=== PATIENT | male | born 1995 | race Caucasian/White ===

== ENCOUNTER 2016-10-31 10:06 | Emergency (ER) | payer OTHER ==
[~2016-10-31] VITALS: Ht 172.7 cm; Wt 92.5 kg
[2016-10-31 10:15] VITALS: BP 160/85
--- NOTE | 2016-10-31 10:43 | PHYS DOC ---
Past Medical History Past Medical History: Asthma, Hypertension, Other Additional Past Medical Histor: ADD, ADHD Past Surgical History: Other Additional Past Surgical Histo: TESTICULAR CONTUSION SX Alcohol Use: Occasionally Drug Use: None Adult General Chief Complaint Chief Complaint: COUGH HPI HPI Patient is a 21 year old male presents emergency department for a history of a harsh, productive cough for the past 4 weeks. Patient is a smoker, he also dips and has a history of asthma. He denies any previous hospitalizations, antibiotics or foreign travel within the past 90 days. He denies previous intubations due to asthma attacks. He was not premature. He did spend a couple of weeks in the intensive care unit due to respiratory problems per his mother's recall. 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 Review of Systems Review of Systems Constitutional: Denies fever or chills [] Eyes: Denies change in visual acuity, redness, or eye pain [] HENT: Denies nasal congestion or sore throat [] Respiratory: Denies cough or shortness of breath [] Cardiovascular: No additional information not addressed in HPI [] GI: Denies abdominal pain, nausea, vomiting, bloody stools or diarrhea [] : Denies dysuria or hematuria [] Musculoskeletal: Denies back pain or joint pain [] Integument: Denies rash or skin lesions [] Neurologic: Denies headache, focal weakness or sensory changes [] Endocrine: Denies polyuria or polydipsia [] Current Medications Current Medications Current Medications Medications (Trade) Dose Ordered Sig/Karla Start Time Stop Time Status Last Admin Dose Admin Albuterol/ Ipratropium (Duoneb) 3 ml 1X ONCE 10/31/16 10:45 10/31/16 10:46 DC 10/31/16 10:44 3 ML Prednisone (Prednisone) 50 mg 1X ONCE 10/31/16 10:45 10/31/16 10:46 DC 10/31/16 10:53 50 MG Allergies Allergies Allergies Coded Allergies Type Severity Reaction Last Updated Verified cefprozil Allergy Intermediate 10/31/16 Yes Physical Exam Physical Exam Constitutional: Well developed, well nourished, no acute distress, non-toxic appearance. Patient is afebrile and has not taken antipyretics. HENT: Normocephalic, atraumatic, bilateral external ears normal, oropharynx moist, no oral exudates, nose normal. Eyes: PERRLA, EOMI, conjunctiva normal, no discharge. [] Neck: Normal range of motion, no tenderness, supple, no stridor. There is no cervical lymphadenopathy. Cardiovascular:Heart rate regular rhythm, no murmur [] Lungs & Thorax: Patient does not show signs of respiratory distress or respiratory fatigue. He is able to speak in full, unbroken sentences. There is no sensory muscle use. Patient does have scattered, coarse wheezing in all lung anne. Oxygen saturation is 97% on room air. Abdomen: Bowel sounds normal, soft, no tenderness, no masses, no pulsatile masses. [] Skin: Warm, dry, no erythema, no rash. [] Back: No tenderness, no CVA tenderness. [] Extremities: No tenderness, no cyanosis, no clubbing, ROM intact, no edema. [] Neurologic: Alert and oriented X 3, normal motor function, normal sensory function, no focal deficits noted. [] Psychologic: Affect normal, judgement normal, mood normal. [] Current Patient Data Vital Signs Vital Signs Date Time Temp Pulse Resp B/P Pulse Ox O2 Delivery O2 Flow Rate FiO2 10/31/16 10:44 Room Air 10/31/16 10:15 98.5 94 16 95 98.5 EKG EKG [] Radiology/Procedures Radiology/Procedures [] Course & Med Decision Making Course & Med Decision Making Patient received 50 mg of prednisone and a DuoNeb treatment in emergency department. He was reevaluated post-neb treatment. Patient's had decreased coarse wheezing. His become slightly more fine and less intense. He is still displayed no evidence of first-degree distress or respiratory fatigue. Patient reports feeling better after the nebulizer treatment. Dragon Disclaimer Dragon Disclaimer This electronic medical record was generated, in whole or in part, using a voice recognition dictation system. Departure Departure Impression: Primary Impression: Asthma exacerbation Disposition: 01 HOME, SELF-CARE Condition: IMPROVED Referrals: NO PCP (PCP) Patient Instructions: Acute Bronchitis, Ufyn-[id number], Asthma Attacks, Prevention, Asthma, Adult, Smoking Cessation, Tips For Success, Smoking, You Can Quit, [id number] Additional Instructions: 1. Take the medication as prescribed. 2. Review the discharge instructions provided for reasons to return the emergency department and performing self-care. 3. Use the pamphlet provided for assistance in finding a primary care doctor to address your medical concerns and follow-up within the next 5-7 days. Scripts Azithromycin (Azithromycin Tablet)250 Mg Tablet1 Pkg PO UD #6 TAB Prov:FRANSISCO PIERCE 10/31/16 Albuterol Sulfate (Proair Hfa Inhaler)8.5 Gm Hfa.aer.ad1 Puff INH PRN Q6HRS PRN SHORTNESS OF BREATH #1 INHALER Ref 0 Prov:FRANSISCO PIERCE 10/31/16 Prednisone 50 Mg [id number] Mg PO DAILY 5 Days Prov:FRANSISCO PIERCE 10/31/16 FRANSISCO PIERCE Oct 31, 2016 10:43
[2016-10-31] MEDS ORDERED: IPRATRPIUM/ALBUTEROL 0.5/2.5MG 3 ML NEBU. NEB ONE (10:45)
[2016-10-31] MEDS ORDERED: PREDNISONE 20 MG TABLET PO ONE (10:45)
[2016-10-31] MEDS ORDERED: PROAIR HFA8.5 GM INH (11:28)
[2016-10-31] MEDS ORDERED: PRED50TA PO (11:28)
[2016-10-31] MEDS ORDERED: AZIT250T6 PO (11:28)
== END 2016-10-31 11:45 | disposition home or self-care (01) ==
LOC: ER 10:06
DX: J45.901 Unspecified asthma with (acute) exacerbation (principal); I10 Essential (primary) hypertension; F90.9 Attention-deficit hyperactivity disorder, unspecified type; F17.200 Nicotine dependence, unspecified, uncomplicated; Z88.8 Allergy status to other drugs, medicaments and biological substances
CPT/HCPCS: 94250; 94640; 99283; J7512; J7620

== ENCOUNTER 2017-06-21 10:15 | Emergency (ER) | payer OTHER ==
[~2017-06-21] VITALS: Ht 175.3 cm; Wt 93.0 kg
[~2017-06-21 10:15] MED LIST: AZIT250T6 PO; PRED50TA PO; PROAIR HFA8.5 GM INH
[2017-06-21 10:25] VITALS: BP 160/89
--- NOTE | 2017-06-21 10:41 | PHYS DOC ---
Past Medical History Past Medical History: Asthma, Hypertension, Other Additional Past Medical Histor: ADD, ADHD Past Surgical History: Other Additional Past Surgical Histo: TESTICULAR CONTUSION SX, HERNIA REPAIR Alcohol Use: Occasionally Drug Use: None Adult General Chief Complaint Chief Complaint: ANKLE PROBLEM HPI HPI Patient is a 21 year old male with history of hypertension and asthma who presents with mild medial and lateral right ankle pain and numbness that began last night. 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 He states he was at work last night. He states he moved his ankle and suddenly heard a "pop" from the ankle with numbness. Patient states he has history ankle problems since seventh grade. Patient states he does not follow-up with an orthopedic doctor. Review of Systems Review of Systems Constitutional: Denies fever or chills [] Musculoskeletal: right ankle pain with numbness Integument: Denies rash or skin lesions [] Neurologic: Denies headache, focal weakness or sensory changes [] Allergies Allergies Allergies Coded Allergies Type Severity Reaction Last Updated Verified cefprozil Allergy Intermediate 10/31/16 Yes Physical Exam Physical Exam Constitutional: Well developed, well nourished, no acute distress, non-toxic appearance. [] Skin: Right ankle with small amount of soft tissue swelling medially and laterally. Tenderness on palpation of the medial and lateral ankle. Full range of motion to the right ankle including flexion and extension of the foot. +2 right pedal pulse. Cap refill less than 2 seconds the right toes. Sensation intact in the right lower extremity. Negative Homans's sign to the RLE Back: No tenderness, no CVA tenderness. [] Extremities: No tenderness, no cyanosis, no clubbing, ROM intact, no edema. [] Neurologic: Alert and oriented X 3, normal motor function, normal sensory function, no focal deficits noted. [] Psychologic: Affect normal, judgement normal, mood normal. [] Current Patient Data Vital Signs Vital Signs Date Time Temp Pulse Resp B/P (MAP) Pulse Ox O2 Delivery O2 Flow Rate FiO2 06/21/17 10:25 98.1 83 16 97 Room Air 98.1 EKG EKG [] Radiology/Procedures Radiology/Procedures []PROCEDURE: ANKLE RIGHT 3V Right ankle, 3 views, 06/21/2017: History: Injury No fracture or dislocation is identified. The soft tissues are unremarkable. IMPRESSION: No acute right ankle abnormality is detected. DICTATED and SIGNED BY: BOBBI BASHIR MD DATE: 06/21/17 1100 CC: REYNA MONTEJO APRN; NO PCP ~ Course & Med Decision Making Course & Med Decision Making Pertinent Labs and Imaging studies reviewed. (See chart for details) Patient is in the ED right ankle pain no known injury. Right ankle x-rays interpreted by radiologist were negative for any acute findings. Patient already has a brace for his right ankle. Neurovascular exam is intact to the right ankle. Patient was discharged with naproxen. Provided an orthopedic doctor for follow-up in one week. Dragon Disclaimer Dragon Disclaimer This electronic medical record was generated, in whole or in part, using a voice recognition dictation system. Departure Departure Impression: Primary Impression: Right ankle sprain Disposition: HOME, SELF-CARE Condition: STABLE Referrals: NO PCP (PCP) MIROSLAVA DURAND MD call her office on Friday for a follow appointment Patient Instructions: Ankle Sprain, Taxp-ty-Wyzb Scripts Naproxen (NAPROXEN) 500 Mg Tablet.dr 1 TAB PO BID, #20 TAB 0 Refills Prov: REYNA MONTEJO APRN 06/21/17 Problem Qualifiers Primary Impression: Right ankle sprain Encounter type: initial encounter Involved ligament of ankle: unspecified ligament Qualified Codes: S93.401A - Sprain of unspecified ligament of right ankle, initial encounter REYNA MONTEJO APRN Jun 21, 2017 10:41
--- NOTE | 2017-06-21 11:03 | RAD ---
Right ankle, 3 views, 06/21/2017: History: Injury No fracture or dislocation is identified. The soft tissues are unremarkable. IMPRESSION: No acute right ankle abnormality is detected.
[2017-06-21] MEDS ORDERED: NAPR500T8 PO (11:21)
== END 2017-06-21 11:35 | disposition home or self-care (01) ==
LOC: ER 10:15
DX: S93.401A Sprain of unspecified ligament of right ankle, initial encounter (principal); J45.909 Unspecified asthma, uncomplicated; I10 Essential (primary) hypertension; F90.9 Attention-deficit hyperactivity disorder, unspecified type; Z88.1 Allergy status to other antibiotic agents; X58.XXXA Exposure to other specified factors, initial encounter; Y93.89 Activity, other specified; Y92.89 Other specified places as the place of occurrence of the external cause; Y99.8 Other external cause status
CPT/HCPCS: 73610; 99284

== ENCOUNTER 2019-03-11 11:35 | Emergency (ER) | payer BC, OTHER ==
[~2019-03-11] VITALS: Ht 177.8 cm; Wt 90.7 kg
[~2019-03-11 11:35] MED LIST changes: +ALBU2.5V8 INH; +NAPR500T8 PO; -PROAIR HFA8.5 GM INH
[2019-03-11 12:35] VITALS: BP 159/98
[2019-03-11] MEDS ORDERED: BENZONATATE 100 MG CAPSULE. PO ONE (13:30)
[2019-03-11] MEDS ORDERED: predniSONE 10 MG TABLET PO ONE (13:30)
--- NOTE | 2019-03-11 13:53 | RAD ---
CHEST PA LATERAL History: Cough. Congestion since Friday.. No comparison. The heart size is not enlarged. No evidence of pneumothorax. No consolidating infiltrate. No evidence of pleural effusion. Bones appear intact. IMPRESSION: No consolidating infiltrate. Electronically signed by: Issac Curtis MD (03/11/2019 1:50 PM) [id number]
--- NOTE | 2019-03-11 14:00 | PHYS DOC ---
Past Medical History Past Medical History: Asthma, Hypertension, Other Additional Past Medical Histor: ADD, ADHD Past Surgical History: Other Additional Past Surgical Histo: TESTICULAR CONTUSION SX, HERNIA REPAIR Alcohol Use: Occasionally Drug Use: None Adult General Chief Complaint Chief Complaint: Congestion HPI HPI Patient is a 23 year old male with history of hypertension, asthma, who presents to the ED today complaining of cough and congestion, symptoms for 5 days. Denies any fever. He is a smoker. He is working on smoking cessation. Review of Systems Review of Systems Constitutional: Denies fever or chills [] Eyes: Denies change in visual acuity, redness, or eye pain [] HENT: Denies nasal congestion or sore throat [] Respiratory: Denies cough or shortness of breath [] Cardiovascular: No additional information not addressed in HPI [] GI: Denies abdominal pain, nausea, vomiting, bloody stools or diarrhea [] : Denies dysuria or hematuria [] Musculoskeletal: Denies back pain or joint pain [] Integument: Denies rash or skin lesions [] Neurologic: Denies headache, focal weakness or sensory changes [] Endocrine: Denies polyuria or polydipsia [] All other systems were reviewed and found to be within normal limits, except as documented in this note. Current Medications Current Medications Current Medications Medications (Trade) Dose Ordered Sig/Karla Start Time Stop Time Status Last Admin Dose Admin Benzonatate (Tessalon Perle) 100 mg 1X ONCE 03/11/19 13:30 03/11/19 13:31 DC 03/11/19 13:25 100 MG Prednisone (Prednisone) 50 mg 1X ONCE 03/11/19 13:30 03/11/19 13:31 DC 03/11/19 13:25 50 MG Allergies Allergies Allergies Coded Allergies Type Severity Reaction Last Updated Verified cefprozil Allergy Intermediate 10/31/16 Yes Physical Exam Physical Exam Constitutional: Well developed, well nourished, no acute distress, non-toxic appearance. [] HENT: Normocephalic, atraumatic, bilateral external ears normal, oropharynx moist, no oral exudates, nose normal. [] Eyes: PERRLA, EOMI, conjunctiva normal, no discharge. [] Neck: Normal range of motion, no tenderness, supple, no stridor. [] Cardiovascular:Heart rate regular rhythm, no murmur [] Lungs & Thorax: Bilateral breath sounds clear to auscultation [] Abdomen: Bowel sounds normal, soft, no tenderness, no masses, no pulsatile masses. [] Skin: Warm, dry, no erythema, no rash. [] Back: No tenderness, no CVA tenderness. [] Extremities: No tenderness, no cyanosis, no clubbing, ROM intact, no edema. [] Neurologic: Alert and oriented X 3, normal motor function, normal sensory function, no focal deficits noted. [] Psychologic: Affect normal, judgement normal, mood normal. [] Current Patient Data Vital Signs Vital Signs Date Time Temp Pulse Resp B/P (MAP) Pulse Ox O2 Delivery O2 Flow Rate FiO2 03/11/19 12:35 97.8 86 20 159/98 (118) 99 Room Air 97.8 EKG EKG [] Radiology/Procedures Radiology/Procedures []PROCEDURE: CHEST PA & LATERAL CHEST PA LATERAL History: Cough. Congestion since Friday.. No comparison. The heart size is not enlarged. No evidence of pneumothorax. No consolidating infiltrate. No evidence of pleural effusion. Bones appear intact. IMPRESSION: No consolidating infiltrate. Electronically signed by: Issac Curtis MD (03/11/2019 1:50 PM) [facility] DICTATED and SIGNED BY: ISSAC CURTIS MD DATE: 03/11/19 1350 Course & Med Decision Making Course & Med Decision Making Pertinent Labs and Imaging studies reviewed. (See chart for details) This is a 23-year-old female patient with history of smoking presented to the ED today with cough and nasal congestion, symptoms 5 days. Patient encouraged to consider smoking cessation. Chest x-rays negative. Given a DuoNeb treatment, prednisone, Tessalon Perles. Discharged to home with albuterol inhaler prednisone Tessalon Perles. Symptoms are likely viral or allergies. BP 158/98, has history of HTN. Discussed with patient importance of compliance with blood pressure medications. Encouraged to follow up with a PCP too. Dragon Disclaimer Dragon Disclaimer This electronic medical record was generated, in whole or in part, using a voice recognition dictation system. Departure Departure Impression: Primary Impression: Acute bronchitis Additional Impressions: Smoking addiction Elevated blood pressure reading Disposition: HOME, SELF-CARE Condition: STABLE Referrals: MANAV JAMES MD (PCP) follow up in 1 week Patient Instructions: Acute Bronchitis, Smoking Cessation Additional Instructions: You were evaluated in the emergency room, a chest x-ray is negative for any acute findings. Take the prescribed medications as ordered, consider smoking cessation. Consider following up with your own primary care doctor for blood pressure management. Blood pressure is still running high. Scripts Albuterol Sulfate (Proventil Hfa) 6.7 Gm Hfa.aer.ad 1 PUFF INH PRN Q6HRS PRN for SHORTNESS OF BREATH, #1 INHALER Prov: REYNA MONTEJO APRN 03/11/19 Benzonatate (TESSALON PERLE) 100 Mg Capsule 1 CAP PO TID, #30 CAP Prov: REYNA MONTEJO APRN 03/11/19 Prednisone (PREDNISONE) 50 Mg Tablet 1 TAB PO DAILY, #5 TAB Prov: REYNA MONTEJO APRN 03/11/19 Problem Qualifiers Primary Impression: Acute bronchitis Bronchitis organism: unspecified organism Qualified Codes: J20.9 - Acute bronchitis, unspecified REYNA MONTEJO APRN March 11, 2019 14:00
[2019-03-11] MEDS ORDERED: PRED50TA PO (14:10)
[2019-03-11] MEDS ORDERED: PROVENTIL HFA6.7 G2 INH (14:10)
[2019-03-11] MEDS ORDERED: BENZ100C PO (14:10)
== END 2019-03-11 14:23 | disposition home or self-care (01) ==
LOC: ER 11:35
DX: J20.9 Acute bronchitis, unspecified (principal); I10 Essential (primary) hypertension; F17.200 Nicotine dependence, unspecified, uncomplicated; J45.909 Unspecified asthma, uncomplicated; Z88.1 Allergy status to other antibiotic agents
CPT/HCPCS: 71046; 99284; J7512